=== PATIENT | male | born 1945 | race Caucasian/White ===

== ENCOUNTER 2020-02-23 09:07 | Outpatient (NON) | payer MEDICARE, OTHER, SELFPAY ==
[2020-02-23 21:01] LABS: SARS-CoV-2 RNA PCR Negative
== END 2020-02-23 09:08 ==
LOC: ANHCOVIDDT 09:10
PROVIDERS: PCP Internal Medicine; Visit Provider Internal Medicine
DX: Z20.828 Contact with and (suspected) exposure to other viral communicable diseases (principal); R09.81 Nasal congestion
CPT/HCPCS: 87635; C9803; U0003

== ENCOUNTER 2020-05-31 09:39 | Outpatient (CLI) | payer MEDICARE, OTHER, SELFPAY ==
[2020-05-31 10:45] LABS: Prostate Specific Antigen 6.4 ng/mL (< OR = 4.0)
== END 2020-05-31 09:40 | disposition home or self-care (01) ==
PROVIDERS: PCP Internal Medicine; Visit Provider Urology
DX: R97.20 Elevated prostate specific antigen [PSA] (principal)
CPT/HCPCS: 36415; 84153

== ENCOUNTER 2020-12-05 08:38 | Outpatient (CLI) | payer MEDICARE, OTHER, SELFPAY | END 2020-12-05 08:39 | disposition home or self-care (01) | PROVIDERS: PCP Internal Medicine; Visit Provider Urology | DX: R97.20 Elevated prostate specific antigen [PSA] (principal) | CPT/HCPCS: 36415; 84153 ==

== ENCOUNTER 2021-06-06 09:22 | Outpatient (CLI) | payer MEDICARE, OTHER, SELFPAY ==
[2021-06-06 10:37] LABS: Prostate Specific Antigen 8.6 ng/mL (< OR = 4.0)
== END 2021-06-06 09:23 | disposition home or self-care (01) ==
PROVIDERS: PCP Internal Medicine; Visit Provider Urology
DX: R97.20 Elevated prostate specific antigen [PSA] (principal)
CPT/HCPCS: 36415; 84153

== ENCOUNTER → 2022-09-03 08:27 | Outpatient (CLI) | payer MEDICARE, OTHER, SELFPAY ==
--- NOTE | ~2022-09-03 | XR_ITS ---
EXAMINATION: XR foot LT min 3V DATE: 09/03/2022 08:54 INDICATION: Pain in the left toes. TECHNIQUE: 5 views of left foot were obtained. COMPARISON: None. FINDINGS: Bone alignment is normal. No fracture. There is mild osteoarthritis of first metatarsophala ngeal joint and many of the interphalangeal joints and midfoot joints. There is an enthesophyte at po sterior aspect of calcaneal tuberosity. IMPRESSION: 1. Polyarticular osteoarthritis. Reviewed, dictated and finalized at location A.
== END ==
PROVIDERS: PCP Internal Medicine; Visit Provider Internal Medicine
DX: M19.072 Primary osteoarthritis, left ankle and foot (principal)
CPT/HCPCS: 73630

== ENCOUNTER 2023-09-16 13:27 | Inpatient (IN) | payer MEDICARE, OTHER, SELFPAY ==
[2023-09-16] VITALS (44 sets, daily range): BP systolic 148–213; BP diastolic 46–142; PULSE 33–69; RESP 12–27; TEMP 36.4–36.9; O2SAT 81–100; BMI 31.4; BMI 32.5
--- NOTE | ~2023-09-16 | XR_ITS ---
EXAMINATION: XR chest 2V DATE: 09/19/2023 15:50 INDICATION: Status post pacemaker insertion TECHNIQUE: PA and lateral views of the chest were obtained. COMPARISON: Chest radiograph dated 09/18/2023 FINDINGS: The lungs are clear with no focal airspace opacities, pulmonary edema, pleural effusion or pneumothor ax. The cardiomediastinal silhouette is normal. Dual lead pacemaker seen with leads projecting over t he expected locations of the right atrium and right ventricle. Cholecystectomy clips at the right upp er quadrant. Moderate thoracic spondylosis with chronic mild anterior wedging of a few mid thoracic v ertebral bodies. IMPRESSION: 1. Dual-lead cardiac pacemaker in expected position. No acute cardiopulmonary disease. Reviewed, dictated and finalized at location A. IMPRESSION: 1. Dual-lead cardiac pacemaker in expected position. No acute cardiopulmonary d isease.
--- NOTE | ~2023-09-16 | XR_ITS ---
EXAMINATION: XR chest 1V portable DATE: 09/18/2023 16:16 INDICATION: Pacemaker insertion TECHNIQUE: frontal view of the chest was obtained. COMPARISON: Chest radiograph dated 09/16/2023 FINDINGS: The lungs remain clear with no focal airspace opacities, pulmonary edema, pleural effusion or pneumot horax. The cardiomediastinal silhouette is normal. Dual lead pacemaker seen with leads projecting ove r the expected locations of the right atrium and right ventricle. IMPRESSION: 1. No acute cardiopulmonary disease. Reviewed, dictated and finalized at location A.
--- NOTE | ~2023-09-16 | XR_ITS ---
Portable chest x-ray Comparison: 06/26/2017 Clinical History: Chest pain Findings: Lungs are clear, without focal consolidation or pleural effusion. Cardiomediastinal silho uette is stable. Bones and soft tissues are unremarkable. Impression: Normal chest. Reviewed, dictated and finalized at [facility]. Impression: Normal chest.
--- NOTE | ~2023-09-16 | CT_ITS ---
Non-contrast Head CT History: Headache Technique: Axial non-contrast imaging of the brain was performed. Dose reduction technique was used on this scan by utilizing automated exposure control and iterative reconstruction technique. The dose -length product (DLP) was 425.04 mGy-cm. Findings: There is no evidence of intracranial hemorrhage, mass lesion, or acute infarct. Brain par enchyma appears normal. The ventricles and subarachnoid spaces are normal in size. The calvarium ap pears normal. The visualized paranasal sinuses and mastoid air cells are clear. Impression: No significant abnormality seen. Reviewed, dictated and finalized at location . Impression: No significant abnormality seen.
--- NOTE | 2023-09-16 13:32 | ECG_ITS ---
Test Date: 2023-09-16 16:40:08 Measurements Intervals [place] Rate: 38 P: 0 KS: 0 QRS: -30 QRSD: 111 T: 82 QT: 473 QTc: 378 Interpretive Statements SINUS RHYTHM WITH HIGH GRADE AV BLOCK ANTEROSEPTAL MYOCARDIAL INFARCTION , OF INDETERMINATE AGE [40+ ms Q WAVE IN V1-V4] No previous ECG available for comparison Electronically Signed On 09-17-2023 12:37:50 CDT by Sona Horowitz M.D.
--- NOTE | 2023-09-16 13:44 | ED.ARRPALP ---
HPI - Arrhythmia/Palpitations General Chief Complaint: Arrhythmia/Palpitations Stated Complaint: abnormal VS Time Seen by Provider: 09/16/23 13:35 History of Present Illness HPI narrative: Patient is an 78-year-old male with history of coronary artery disease, diabetes, hypertension, urinary frequency here with high blood pressure and low heart rate. Patient notes that today he began having a headache. He checked his blood pressure at home and it was elevated >200 which prompted him to call EMS. He has a log for blood pressure and heart rates over the last 2 months showing a trend of HR in the low 50s and mid to high 40s. He denies chest pain, lightheadedness, dizziness. He does not believe that he is on any beta-blockers. His only new medication is that he began was then packed yesterday. He denies any nausea, vomiting, diarrhea. When EMS arrived at his house they found his heart rate to be fluctuating between the 20s and 30s. No medications were given EN route. He follows with a records section supervisor out of [facility], Dr. Mo. He had initially requested to be transported to [facility] however due to his low heart rate EMS felt uncomfortable with prolonged transport and brought him to the nearest emergency department which was our emergency department. He notes that he did take ibuprofen for his headache prior to EMS arrival, it had been helping his headache but now the headache has worsened again since he arrived to our emergency department. Related Data Allergies Allergy/AdvReac Type Severity Reaction Status Date / Time niacin Allergy Unknown Unknown Verified 09/16/23 15:48 rosuvastatin Allergy Unknown Unknown Verified 09/16/23 15:48 tolterodine Allergy Unknown Unknown Verified 09/16/23 15:48 Review of Systems Review of Systems: All systems reviewed & are unremarkable except as noted in HPI and below PMFSH Family History Family History (Updated 09/23/18 @ 13:56 by DOCTOR UNKNOWN) Mother Diabetes mellitus Family history of congenital heart disease Father Family history of congenital heart disease Family history of malignant neoplasm Sibling Family history of malignant neoplasm Social History Social History Smoking status: Never smoker Alcohol intake: current Exam Narrative: GENERAL: Well-appearing, well-nourished, and in no acute distress. HEAD: Normocephalic, atraumatic. EYES: PERRLA and EOMI. ENT: Nares clear. Mucous membranes moist. NECK: Supple. CHEST: Clear to auscultation. No respiratory distress. HEART: Bradycardia. Normal peripheral pulses. ABDOMEN: Soft, nontender, nondistended. EXTREMITIES: Normal range of motion. No edema. SKIN: Warm, dry, no rash. NEURO: No focal deficits. Alert and oriented x3. PSYCH: Normal mood and affect. Course Course Emergency Course: Chart review performed. Patient here with HTN, low HR. Triage vitals initially show HTN, normal HR, afebrile. EKG shows HR in the 50s with bigeminy. No prior EKGs in our system. Patient seen evaluated, nontoxic appearing. Blood pressure stable, patient alert, oriented and largely asymptomatic for his low heart rates. On the monitor he appears to be sinus bradycardia and lives in and out of [facility]. Discussed workup with patient. Will avoid any blood pressure lowering medications given his bradycardia. Tylenol ordered for headache. Patient reiterates that he would like to be seen by his records section supervisor, Dr. Mo if possible at [facility]. Will dicusss transfer once we have workup more complete. Lab work and imaging reviewed, CBC unremarkable, electrolytes within normal limits, grossly normal renal function, BNP elevated at 1060, troponin negative. Magnesium is 1.7, will replete this to optimize his magnesium level greater than 2. UA negative for UTI. CT brain negative. Chest x-ray normal. Will re-evaluate patient and discuss possible transfer to [facility] where his records section supervisor is for c
[2023-09-16 14:04] LABS: Basophils Percent Auto 0.5 % (0.2-1.2); Eosinophils Absolute Auto 0.1 K/mm3 (0-0.3); Eosinophils Percent Auto 2.2 % (0-4.4); Hematocrit 35.6 % (42.0-52.0); Hemoglobin 11.4 g/dL (14.0-18.0); Immature Granulocyte Absolute 0.02 K/mm3 (0.00-0.031); Immature Granulocyte Percent A 0.3 % (0-0.5); Lymphocytes Absolute Auto 1.16 K/mm3 (0.9-3.2); Mean Corpuscular Hemoglobin 29.3 pg (26-34); Mean Corpuscular Volume 91.5 fl (80-100); Mean Platelet Volume 9.9 fl (7.4-10.4); Monocytes Absolute Auto 0.5 K/mm3 (0.1-0.6); Monocytes Percent Auto 8.1 % (2.6-8.5); Neutrophils Absolute Auto 4.6 K/mm3 (1.3-6.7); Neutrophils Percent Auto 70.9 % (45.5-73.1); Platelet Count Result 289 k/mm3 (150-375); Red Blood Count 3.89 M/mm3 (4.6-6.20); Red Cell Distribution Width 13.1 % (11.5-14.5); White Blood Count 6.4 K/mm3 (4.5-10.0)
[2023-09-16 14:14] LABS: Appearance Urine Clear (Clear); Bacteria Urine None Seen /hpf; Bilirubin Urine Negative (Negative); Blood Urine Trace (Negative); Color Urine Yellow (Yellow); Glucose Urine UA Negative (Negative); Ketones Urine Negative (Negative); Leukocyte Esterase Ur Negative LEU/UL (Negative); Nitrate Urine Negative (Negative); Non Pathogenic Casts 0-2; Protein Urine 2+ mg/dL (Negative); RBC Urine 0-2 /hpf (0-2); Squamous Epithelial Cell Urine None Seen /hpf (Few); Urobilinogen Urine 0.2 mg/dL (<2.0); WBC Urine 0-5 /hpf (0-3); pH Urine 7.5 (5.0-9.0)
[2023-09-16 14:19] LABS: Alanine Aminotransferase 21 U/L (6-50); Albumin Level 4.4 g/dL (3.5-5.1); Alkaline Phosphatase 83 U/L (38-126); Anion Gap 5 mmol/L (4-12); Aspartate Amino Transferase 35 U/L (17-59); Bilirubin,Total 1.1 mg/dL (0.2-1.3); Blood Urea Nitrogen 16 mg/dL (9-20); Calcium 9.6 mg/dL (8.4-10.2); Carbon Dioxide 31 mmol/L (22-30); Chloride 105 mmol/L (98-107); Estimated CRCL calculation 54 ml/min; Estimated Glomerular Filt Rate > 60; Glucose 102 mg/dL (65-110); Lipase 61 U/L (23-300); Magnesium 1.7 mg/dL (1.6-2.3); Potassium 3.9 mmol/L (3.4-5.0); Sodium 141 mmol/L (137-145)
[2023-09-16] MEDS: ACETAMINOPHEN 500 MG TABLET 1000 MG PO (14:21)
[2023-09-16 14:23] LABS: Partial Thromboplastin Time 27.6 Seconds (22.3-36.8); Prothrombin Time 13.4 Seconds (11.1-14.7)
[2023-09-16 14:30] LABS: NT Pro B Type Natriuretic Pept 1060 pg/mL (19.9-100); Troponin I 0.017 ng/mL (0.000-0.034)
[2023-09-16 14:31] LABS: Add Urine Microscopic? YES; Specific Grav Ur 1.004 (1.001-1.035)
[2023-09-16] MEDS: MAGNESIUM SULF 2 GM/WATER 50ML 2 GM/50 ML BAG IVPB (15:58)
[2023-09-16] MEDS: amLODIPine BESYLATE 5 MG TABLET 10 MG PO (15:59)
[2023-09-16] MEDS: ONDANSETRON INJ 4 MG/2 ML VIAL IV PUSH ×2 (17:12→19:16)
[2023-09-16] MEDS: MORPHINE SULFATE (*CRX) 4 MG/ML INJ IV PUSH ×2 (17:12→19:21)
[2023-09-16] MEDS: hydrALAZINE HCL 20 MG/ML VIAL 10 MG IV PUSH (17:19)
[2023-09-16 17:25] LABS: Troponin I 0.128 ng/mL (0.000-0.034)
[2023-09-16] MEDS: ENOXAPARIN 100 MG/ML SYRINGE SUB-Q (18:01)
--- NOTE | 2023-09-16 19:13 | ECG_ITS ---
Test Date: 2023-09-16 19:20:43 Measurements Intervals [place] Rate: 68 P: 0 VA: 0 QRS: -27 QRSD: 94 T: 79 QT: 395 QTc: 423 Interpretive Statements SINUS RHYTHM WITH HIGH GRADE AV BLOCK PVCS ANTEROSEPTAL MYOCARDIAL INFARCTION , PROBABLY OLD [40+ ms Q WAVE IN V1-V4] Compared to ECG 09/16/2023 16:40:08 No significant changes Electronically Signed On 09-17-2023 12:40:16 CDT by Sona Horowitz M.D.
[2023-09-16] MEDS: ASPIRIN 81 MG CHEWABLE TABLET 324 MG PO (19:20)
--- NOTE | 2023-09-16 19:21 | PC.NURSE ---
ON 09/15/2020 AT 1910 I ANSWERED THIS PT'S 'S (WHO WAS UP AT THE NURSES STATION) REQUEST TO COME GIVE PT A NEW EMESIS BAG. I WENT STRAIGHT IN TO ROOM 9 AT HER REQUEST, INTRODUCED MYSELF, THE [employer] CHARGE NURSE AND OFFERED TO THEM IF THERE WAS ANYTHING I COULD DO FOR THEM TO JUST LET ME KNOW. I TOOK HIS USED EMESIS BAG AND GAVE HIM A NEW ONE. I ALSO GAVE HIM A WET WASHCLOTH FOR COMFORT. I ASKED IF HE WAS IN NEED OF NAUSEA MEDICATION, HE ANSWERED I DON'T KNOW . I ASSURED HIM I WOULD CHECK ON NAUSEA MEDICATION AND ALSO CHECK ON HIS POTENTIAL BED STATUS AT [facility]. HIS IS AT BEDSIDE, AND IS VERBALLY EXPRESSING HER DISCONTENT WITH THIS HOSPITAL AND EVERYONE HERE.
--- NOTE | 2023-09-16 19:41 | PM.IMHP ---
H&P: HPI History of Present Illness Date/Time: 09/16/23 19:41 Chief Complaint: shortness of breath Narrative: this is an 78-year-old male with past medical history significant for coronary artery disease, status post PTCA, type 2 diabetes mellitus, hypertension, benign prostatic hyperplasia. patient presents to the emergency room due to uncontrolled hypertension with systolic blood pressure in the 200s he was brought by EMS initially on route to [place] were patient usually gets his care but with significant bradycardia on route decision was made to bring him to our emergency room. here patient was found to have systolic blood pressure in the 200s as well and to be bradycardic. Patient has been feeling well he went to the in the morning and he has had an overall good week denies any shortness of breath cough sputum production, fevers, rigors, chills, leg swelling, lightheadedness however upon episode of of hypertension he had episodes of brief chest pain with lightheadedness and shortness of breath. Patient has been placed in observation his currently awaiting a bed at [place] Non-contrast Head CT History: Headache Technique: Axial non-contrast imaging of the brain was performed. Dose reduction technique was used on this scan by utilizing automated exposure control and iterative reconstruction technique. The dose-length product (DLP) was 425.04 mGy-cm. Findings: There is no evidence of intracranial hemorrhage, mass lesion, or acute infarct. Brain parenchyma appears normal. The ventricles and subarachnoid spaces are normal in size. The calvarium appears normal. The visualized paranasal sinuses and mastoid air cells are clear. Impression: No significant abnormality seen. Portable chest x-ray Comparison: 06/26/2017 Clinical History: Chest pain Findings: Lungs are clear, without focal consolidation or pleural effusion. Cardiomediastinal silhouette is stable. Bones and soft tissues are unremarkable. Impression: Normal chest. Review of Systems Review of Systems: uncontrolled hypertension Constitutional: Constitutional: Denies chills, Denies fatigue, Denies fever(s), Denies malaise, Denies night sweats, Denies poor appetite, Denies weakness and Reports weight loss ( on Ozempic) Eyes: Eyes: Denies change in vision ENT: Denies dysphagia, Denies vertigo, Denies dizziness and Denies odynophagia Cardiovascular: Cardiovascular: Reports chest pain, Denies leg edema, Reports lightheadedness, Denies radiating jaw, neck or arm pain, Denies palpitations, Reports dyspnea and Reports other ( uncontrolled hypertension) Respiratory: Respiratory: Denies chest congestion, Denies cough and Denies wheezing Gastrointestinal: Gastrointestinal: Denies abdominal pain, Denies nausea and Denies vomiting Genitourinary: Genitourinary: Denies dysuria Musculoskeletal: Musculoskeletal: Denies myalgias Integumentary/Breasts: Skin/Breast: Denies rash Neurologic: Denies focal weakness and Denies Sensory deficit (Neuro) Psychiatric: Psychiatric: Reports no additional psychiatric complaints and Reports as per HPI Endocrine: Endocrine: Denies cold intolerance, Denies heat intolerance, Denies polyphagia, Denies polydipsia, Denies polyuria and Denies palpitations Hematologic/Lymphatic: Hematologic/Lymphatic: Reports no additional hematologic/lymphatic complaints and Reports as per HPI Allergic/Immunologic: Allergic/Immunologic: Reports no additional allergic/immunologic complaints and Reports as per HPI [facility] Family History Family History Mother Diabetes mellitus Family history of congenital heart disease Father Family history of congenital heart disease Family history of malignant neoplasm Sibling Family history of malignant neoplasm Social History Social History Smoking status: Never smoker Alcohol intake: current Drinks per we
--- NOTE | 2023-09-16 20:02 | PC.NURSE ---
upon shift change, visitor of patient came to the nurses station shouting pt was vomitting. per edp dr. nickerson pt to receive 4mg of zofran iv push. this rn went into patient room. pt visitor started stating, no one has given him any medications for his leg cramping, the call light is on the ground, the nurse before said she was checking on things, has not been back . this rn explained I had zofran for patient for nausea. pt verbalized understanding and had no further questions at this time. pt visitor stated his leg cramping was a 9/10 and getting worse . edp dr. nickerson ordered morphine for patient. this rn asked patient his pain level. pt stated his bilateral leg cramping was a 7/10. this rn administered morphine to patient. pt verbalized understanding. this rn reorientated patient to the call light and explained how to use call light. pt verbalized understanding. ed charge lpn gave pt visitor patient coordination card. pt visitor shouted, no that is not enough . meteorologist in charge explained the benefits of voicing concerns. pt visitor then stated, I don't need to talk to patient advocate, I need a court attendant .
[2023-09-16 20:11] LABS: Troponin I 0.221 ng/mL (0.000-0.034)
--- NOTE | 2023-09-16 20:30 | ECG_ITS ---
Test Date: 2023-09-16 20:33:56 Measurements Intervals [place] Rate: 57 P: 162 ID: [id number] QRS: -25 QRSD: 91 T: 115 QT: 395 QTc: 386 Interpretive Statements SINUS BRADYCARDIA WITH HIGH GRADE AV BLOCK WITH FREQUENT VENTRICULAR PREMATURE COMPLEXES IN A BIGEMINAL PATTERN ANTEROSEPTAL MYOCARDIAL INFARCTION , OF INDETERMINATE AGE [40+ ms Q WAVE IN V1-V4] Compared to ECG 09/16/2023 19:20:43 NO SIGNIFICANT CHANGES Electronically Signed On 09-17-2023 12:41:26 CDT by oSna Horowitz M.D.
[2023-09-16] MEDS: LORazepam INJ (*CRX) 2 MG/ML VIAL 1 MG IV PUSH (20:36)
[2023-09-16 21:43] LABS: Glucose Point of Care 180 mg/dl (65-105)
--- NOTE | 2023-09-16 22:14 | ADMGEN ---
This patient, Adán Anderson, was admitted to IMU Room 204-01 at 2105. Patient/family oriented to hospital policies and general routines including ID bracelet, bed and alarms, visiting hours, pain management, procedures, bathroom and other care routines, personal items, smoking policy, room service/diet, and visiting hours. Information on how to activate the Rapid Response Team has been discussed. Patient/Family are encouraged to report perceived risks to care and to ask questions if they do not understand what they are told or what they should do.
[2023-09-17] VITALS (15 sets, daily range): BP systolic 150–176; BP diastolic 48–57; PULSE 31–58; RESP 16–20; TEMP 35.9–36.8; O2SAT 91–98
--- NOTE | 2023-09-17 | ECHO_ITS ---
Patient Info Name: Adán Anderson Age: 78 years : 1945 Gender: Male Ht: 68 in Wt: 208 lbs BSA: 2.16 m2 HR: 53 bpm BP: 167 / 52 mmHg Heart Rhythm: Sinus Rhythm Technical Quality: Fair Exam Date: 09/17/2023 3:13 PM Exam Location: Echo Lab Patient Status: Inpatient Admit Date: 09/16/2023 Staff Ordering Physician: Mitra Navarro Facility Sales And Admin: Sheri Leyva RDCS Attending Provider: Easton Lucas MD Referring Physician: Melanie PHILLIP; Exam Type: CA echo dop color flow w con Study Info Indications - complete heart block Complete two-dimensional, color flow and Doppler transthoracic echocardiogram is performed with contrast to opacify the left ventricle and to improve the deliniation of the left ventricle endocardial borders. Contrast/Agitated Saline Contrast/Ag. Saline: Definity Amount: 3.00 ml Administered By: Sheri Leyva RDCS Existing IV Access: Yes IV Access Condition: patent with no signs of infiltration Summary 1. Normal left ventricular size with normal systolic function and grade 1 diastolic noncompliance. 2. Mild aortic valve stenosis valve area 1.5 cm2. 3. Left atrial enlarged. 4. Second-degree AV block noted during the echocardiogram. Left Ventricle Left ventricular chamber dimension is normal. Left ventricular systolic function is normal, estimated at 55-60%. The left ventricular diastolic function is grade I diastolic dysfunction. Right Ventricle Right ventricular chamber dimension is normal. Left Atria Left atrial chamber dimension is moderately enlarged. Right Atria Right atrial chamber dimension is normal. Aortic Valve The aortic valve is trileaflet. There is moderate aortic valve sclerosis. There is mild aortic valve stenosis with a peak velocity of 254.98 cm/s, mean gradient of 11 mmHg, and aortic valve area of 1.83 cm2. Pulmonic Valve The pulmonic valve is normal. Mitral Valve The mitral valve has normal leaflets. The mitral valve annulus is mildly calcified. Tricuspid Valve The tricuspid valve leaflets are normal. Pericardium/Pleural The pericardium appears normal. Aorta The aortic root size at the sinus of Valsalva is normal. Left Ventricular Outflow Tract Name Value Normal LVOT 2D LVOT Diameter 2.01 cm LVOT Doppler LVOT Peak Gradient 6 mmHg LVOT Mean Gradient 3 mmHg LVOT VTI 28.40 cm LVOT VTI/AV VTI Ratio 0.58 LVOT Stroke Volume 90.13 ml LVOT CO 2.91 l/min LVOT CI 1.35 L/min/m2 Pulmonic Valve Name Value Normal RVOT Doppler RVOT Peak Gradient 4 mmHg PV Doppler PV Peak Gradient 6 mmHg Mitral Valve
[2023-09-17] MEDS: MONTELUKAST SODIUM 10 MG TABLET PO (08:38)
[2023-09-17] MEDS: amLODIPine BESYLATE 2.5 MG TABLET PO (08:38)
[2023-09-17] MEDS: PANTOPRAZOLE 40 MG TABLET PO (08:38)
[2023-09-17] MEDS: hydrALAZINE HCL 25 MG TABLET PO ×2 (08:38→16:47)
[2023-09-17] MEDS: lisinopriL 20 MG TABLET PO (08:38)
[2023-09-17] MEDS: FINASTERIDE 5 MG TABLET PO (08:39)
[2023-09-17] MEDS: ASPIRIN 81 MG ENTERIC TABLET PO (08:39)
[2023-09-17] MEDS: LORATADINE 10 MG TABLET PO (08:39)
[2023-09-17] MEDS: ATORVASTATIN 40 MG TABLET PO (08:40)
--- NOTE | 2023-09-17 08:46 | ECG_ITS ---
Test Date: 2023-09-17 09:50:29 Measurements Intervals [place] Rate: 41 P: 0 [place]: 0 QRS: -33 QRSD: 121 T: 69 QT: 442 QTc: 368 Interpretive Statements SINUS BRADYCARDIA WITH HIGH GRADE AV BLOCK MARKED LEFT AXIS DEVIATION [QRS AXIS < -30] ANTEROSEPTAL MYOCARDIAL INFARCTION [40+ ms Q WAVE IN V1-V4], PROBABLY OLD Compared to ECG 09/16/2023 20:33:56 NO SIGNIFICANT CHANGES Electronically Signed On 09-17-2023 12:47:03 CDT by Sona Horowitz M.D.
--- NOTE | 2023-09-17 11:09 | PM.CNCAR ---
Assessment and Plan Assessment and plan (1) CAD (coronary artery disease): Code(s): I25.10 - Atherosclerotic heart disease of three affiliated coronary artery without angina pectoris Status: Acute Assessment and Plan: History of CAD with 2 stents. This is stable, not reporting any anginal symptoms. Continue ASA, statin. (2) Bradycardia: Code(s): R00.1 - Bradycardia, unspecified Status: Acute Assessment and Plan: He has high grade AV block with heart rates frequently in the 30's. Despite this, his blood pressure is stable and he is asymptomatic. He does not have any obvious correctable cause for this bradyarrhythmia. Therefore, discussed the recommendation for permanent pacemaker implantation for his third degree heart block. He is agreeable to this and would like to remain at [facility] for this procedure rather than transferring to [facility] as originally planned. Plan for pacemaker placement tomorrow with Dr. Pidera. Since he is stable he does not require temporary pacing or support with dopamine at this point. Continue to monitor on telemetry. (3) Hypertension: Qualifiers: Hypertension type: unspecified Qualified Code(s): I10 - Essential (primary) hypertension Code(s): I10 - Essential (primary) hypertension Status: Acute History of Present Illness History of Present Illness Consult date/time: 09/17/23 11:09 Requesting physician: Ellie Gutierrez MD Consult reason: hypertension and Other (bradycardia) Reason For Visit: Bradycardia, Hypertension Narrative: Adán Anderson is an 78 year old male with coronary artery disease and hypertension. He reports an AR in 1994 which was trated medically and he subsequently had two stents placed a number of years ago following an abnormal nuclear stress test. Generally from a cardiac standpoint he has been doing very well. He follows with Dr. Mo and reports that he had a follow up visit in August where no changes were made. He was brought to the hospital because he was hypertensive at home yesterday and his was concerned. Upon initial assessment he was found to be bradycardic and ECG revealed high grade AV block. He denies having a history of any arrhythmias and denies any symptoms of syncope, pre-syncope, shortness of breath, chest pain. He has no complaints at the time of my evaluation and is resting comfortably in bed with multiple family members at the bedside. Review of Systems Constitutional: Constitutional: Denies chills, Denies fever(s), Denies headache(s) and Denies malaise Eyes: Eyes: Denies change in vision ENT: Reports Normal hearing present, Denies dizziness, Denies headache(s) and Denies hearing loss Cardiovascular: Cardiovascular: Denies chest pain, Denies chest pain at rest, Denies chest pain with activity, Denies syncope, Denies leg edema, Denies palpitations, Denies dyspnea and Denies dyspnea on exertion Respiratory: Respiratory: Denies cough, Denies dyspnea, Denies dyspnea on exertion and Denies wheezing Gastrointestinal: Gastrointestinal: Denies abdominal pain, Denies constipation and Denies diarrhea Genitourinary: Genitourinary: Denies hematuria and Denies dysuria Musculoskeletal: Musculoskeletal: Denies myalgias, Denies arthralgias and Denies muscle cramps Integumentary/Breasts: Skin/Breast: Denies wounds Neurologic: Reports Normal hearing present, Denies confusion, Denies dizziness, Denies syncope and Denies headache(s) Psychiatric: Psychiatric: Denies anxiety, Denies confusion and Denies depression Endocrine: Endocrine: Denies cold intolerance, Denies flushing, Denies heat intolerance and Denies palpitations Hematologic/Lymphatic: Hematologic/Lymphatic: Denies easy bleeding and Denies easy bruising Allergic/Immunologic: Allergic/Immunologic: Denies wheezing PMFSH Family History Family History Mother Diabetes mellitus
--- NOTE | 2023-09-17 14:22 | PM.IMPN ---
Progress Note: A&P Assessment and Plan (1) Hypertension: Qualifiers: Hypertension type: unspecified Qualified Code(s): I10 - Essential (primary) hypertension Code(s): I10 - Essential (primary) hypertension Status: Acute Assessment and Plan: restart home meds cautious normalization of blood pressure (2) Bradycardia: Code(s): R00.1 - Bradycardia, unspecified Status: Acute Assessment and Plan: pacer pads on (3) CAD (coronary artery disease): Code(s): I25.10 - Atherosclerotic heart disease of [place] coronary artery without angina pectoris Status: Acute Assessment and Plan: continue to monitor (4) T2DM (type 2 diabetes mellitus): Code(s): E11.9 - Type 2 diabetes mellitus without complications Status: Acute Assessment and Plan: Holding Ezetimibe Holding Ozempic Plan Patient is an 78-year-old male with history of coronary artery disease, diabetes, hypertension, urinary frequency here with high blood pressure and low heart rate. Patient notes that today he began having a headache. He checked his blood pressure at home and it was elevated >200 which prompted him to call EMS. He has a log for blood pressure and heart rates over the last 2 months showing a trend of HR in the low 50s and mid to high 40s. He denies chest pain, lightheadedness, dizziness. He does not believe that he is on any beta-blockers. His only new medication is that he began was then packed yesterday. He denies any nausea, vomiting, diarrhea. When EMS arrived at his house they found his heart rate to be fluctuating between the 20s and 30s. No medications were given EN route. He follows with a application architect out of [facility], Dr. Mo. He had initially requested to be transported to [facility] however due to his low heart rate EMS felt uncomfortable with prolonged transport and brought him to the nearest emergency department which was our emergency department. He notes that he did take ibuprofen for his headache prior to EMS arrival, it had been helping his headache but now the headache has worsened again since he arrived to our emergency department. Lab work and imaging reviewed, CBC unremarkable, electrolytes within normal limits, grossly normal renal function, BNP elevated at 1060, troponin negative. Magnesium is 1.7, will replete this to optimize his magnesium level greater than 2. UA negative for UTI. CT brain negative. Chest x-ray normal. Patient was discussed with primary application architect at [facility] and accepted for transfer. Currently on wait list. Cardiology has been consulted here for sinus bradycardia and high-grade block. Hemodynamically stable. Elevated troponin as well. Therapeutic Lovenox Given. Will continue with the prophylactic dose Subjective Date/time seen: 09/17/23 14:22 Interval history: Telemetry reviewed. No new complaints. No chest pain or shortness of breath. No lightheadedness or dizziness. Review of Systems Review of Systems: All systems reviewed & are unremarkable except as noted in HPI and below Exam Narrative: GENERAL: Well-appearing, well-nourished, and in no acute distress. HEAD: Normocephalic, atraumatic. EYES: PERRLA and EOMI. ENT: Nares clear. Mucous membranes moist. NECK: Supple. CHEST: Clear to auscultation. No respiratory distress. HEART: Bradycardia. Normal peripheral pulses. ABDOMEN: Soft, nontender, nondistended. EXTREMITIES: Normal range of motion. No edema. SKIN: Warm, dry, no rash. NEURO: No focal deficits. Alert and oriented x3. PSYCH: Normal mood and affect. Objective Data Vital Signs Vital Signs: Vital Signs - 24 hr 09/16/23 14:23 09/16/23 14:23 09/16/23 14:35 Temperature Pulse Rate 53 L 56 L 62 Respiratory Rate 14 13 14 Blood Pressure 169/68 H 169/68 H 180/53 H Pulse Oximetry 97 99 97 Oxygen Delivery 09/16/23 14:45 09/16/23 14:50 09/16/23 15:15
[2023-09-17] MEDS: PERFLUTREN LIPID MICROSPHERES 1.5 ML VIAL DILUTED TO 10 ML TOTAL VOLUME IV PUSH (15:30)
--- NOTE | 2023-09-17 17:20 | IVDEFINITY ---
Prior to administration of IV Definity the patient was educated on the risks and benefits of the imaging enhancing agent including potential adverse side effects. The patient verbalized understanding. Allergies were verified. No exclusion criteria were identified and at least one of the following inclusion criteria were met: 1) physician request, 2) patient technically difficult to image (per the [place] [employer] guidelines of two or more segments not discernable within the apical view), or 3) questionable left ventricular function. ?
[2023-09-18] VITALS (19 sets, daily range): BP systolic 154–186; BP diastolic 55–73; PULSE 32–73; RESP 14–20; TEMP 36.5–36.8; O2SAT 94–98
[2023-09-18 05:48] LABS: Glucose Point of Care 148 mg/dl (65-105)
[2023-09-18 08:16] LABS: Glucose Point of Care 107 mg/dl (65-105)
[2023-09-18] MEDS: amLODIPine BESYLATE 5 MG TABLET 10 MG PO (08:42)
[2023-09-18] MEDS: lisinopriL 20 MG TABLET PO (08:43)
[2023-09-18] MEDS: LORATADINE 10 MG TABLET PO (08:43)
[2023-09-18] MEDS: ATORVASTATIN 40 MG TABLET PO (08:43)
[2023-09-18] MEDS: hydrALAZINE HCL 25 MG TABLET PO ×3 (08:43→20:04)
[2023-09-18] MEDS: FINASTERIDE 5 MG TABLET PO (08:43)
[2023-09-18] MEDS: MONTELUKAST SODIUM 10 MG TABLET PO (08:43)
[2023-09-18] MEDS: PANTOPRAZOLE 40 MG TABLET PO (08:44)
[2023-09-18] MEDS: ASPIRIN 81 MG ENTERIC TABLET PO (08:44)
--- NOTE | 2023-09-18 08:53 | WPDMODSED ---
Moderate Sedation Note-Pt Data Patient Data Diagnosis: High-grade AV block coronary disease with previous PCI Present Complaint: bradycardia Procedure to be performed/Plan: pacemaker implantation Allergies Allergy/AdvReac Type Severity Reaction Status Date / Time niacin Allergy Unknown Unknown Verified 09/16/23 15:48 rosuvastatin Allergy Unknown Unknown Verified 09/16/23 15:48 tolterodine Allergy Unknown Unknown Verified 09/16/23 15:48 Home Medications Medication Instructions Recorded Confirmed Type amlodipine 2.5 mg tablet 2.5 mg PO DAILY 09/16/23 09/16/23 History aspirin 81 mg tablet,delayed 81 mg PO DAILY 09/16/23 09/16/23 History release atorvastatin 40 mg tablet 40 mg PO DAILY 09/16/23 09/16/23 History cetirizine 10 mg tablet (Zyrtec) 10 mg PO DAILY 09/16/23 09/16/23 History cholecalciferol (vitamin D3) 125 125 mcg PO DAILY 09/16/23 09/16/23 History mcg (5,000 unit) capsule coenzyme Q10 100 mg capsule 200 mg PO DAILY 09/16/23 09/16/23 History (CoQ-10) ezetimibe 10 mg tablet 10 mg PO DAILY 09/16/23 09/16/23 History finasteride 5 mg tablet 5 mg PO DAILY 09/16/23 09/16/23 History hydralazine 25 mg tablet 25 mg PO BID 09/16/23 09/16/23 History lisinopril 20 mg tablet 20 mg PO DAILY 09/16/23 09/16/23 History montelukast 10 mg tablet 10 mg PO DAILY 09/16/23 09/16/23 History omeprazole 20 mg capsule,delayed 20 mg PO DAILY 09/16/23 09/16/23 History release semaglutide 1 mg/dose (4 mg/3 mL) 1 mg subcut WEEKLY 09/16/23 09/16/23 History subcutaneous pen injector (Ozempic) Current Medications: Active Medications Amlodipine Besylate (Amlodipine Besylate 5 Mg Tablet) 10 mg PO DAILY [facility] Last Admin: 09/18/23 08:42 Dose: 10 mg Aspirin (Aspirin 81 Mg Enteric Tablet) 81 mg PO DAILY [facility] Last Admin: 09/18/23 08:44 Dose: 81 mg Atorvastatin Calcium (Atorvastatin 40 Mg Tablet) 40 mg PO DAILY [facility] Last Admin: 09/18/23 08:43 Dose: 40 mg Finasteride (Finasteride 5 Mg Tablet) 5 mg PO DAILY [facility] Last Admin: 09/18/23 08:43 Dose: 5 mg Hydralazine HCl (Hydralazine Hcl 25 Mg Tablet) 25 mg PO BID [facility] Last Admin: 09/18/23 08:43 Dose: 25 mg Lisinopril (Lisinopril 20 Mg Tablet) 20 mg PO DAILY [facility] Last Admin: 09/18/23 08:43 Dose: 20 mg Loratadine (Loratadine 10 Mg Tablet) 10 mg PO QAM [facility] Last Admin: 09/18/23 08:43 Dose: 10 mg Montelukast Sodium (Montelukast Sodium 10 Mg Tablet) 10 mg PO DAILY [facility] Last Admin: 09/18/23 08:43 Dose: 10 mg Pantoprazole Sodium (Pantoprazole 40 Mg Tablet) 40 mg PO QAM [facility] Last Admin: 09/18/23 08:44 Dose: 40 mg Trimethobenzamide HCl (Trimethobenzamide Hcl 200 Mg/2 Ml Vial) 200 mg IM Q6H PRN PRN Reason: Nausea And Vomiting Sedation/Anesthesia: No previous sedation/anesthesia problems (including family history). [facility] Family History Family History Mother Diabetes mellitus Family history of congenital heart disease Father Family history of congenital heart disease Family history of malignant neoplasm Sibling Family history of malignant neoplasm Social History Social History Smoking status: Never smoker Alcohol intake: current Drinks per week: 1 Substance use: never Do You Feel Safe in your Home?: Yes Lack of Transportation: No Lack of Food: Never True Current Housing: I Have Housing Concerned About Future Housing: No Difficulty Paying Gas/Electric Bills: No Difficulty Paying for Meds: No Currently Unemployed: No Education: Master's Degree or Higher Difficulty w/ Childcare or Family Care: No Spiritual care concerns: Yes Mod Sed Physical Exam Physical Exam Pre Procedural Exam: Normal: Appearance, Neck, Throat, Airway, Lungs, Heart Size, Neuro Exam and Extremities and Variation: Heart Rate ( bradycardic, second-degree AV block) and Heart Rhythm Hours since solid foods: 12 Hours since liquid int
[2023-09-18] MEDS: TRIMETHOBENZAMIDE HCL 200 MG/2 ML VIAL IM (09:02)
--- NOTE | 2023-09-18 10:07 | PM.IMPN ---
Progress Note: A&P Assessment and Plan (1) Hypertension: Qualifiers: Hypertension type: unspecified Qualified Code(s): I10 - Essential (primary) hypertension Code(s): I10 - Essential (primary) hypertension Status: Acute (2) Bradycardia: Code(s): R00.1 - Bradycardia, unspecified Status: Acute (3) CAD (coronary artery disease): Code(s): I25.10 - Atherosclerotic heart disease of [place] coronary artery without angina pectoris Status: Acute (4) T2DM (type 2 diabetes mellitus): Code(s): E11.9 - Type 2 diabetes mellitus without complications Status: Acute Plan Patient is an 78-year-old male with history of coronary artery disease, diabetes, hypertension, urinary frequency here with high blood pressure and low heart rate. Patient notes that today he began having a headache. He checked his blood pressure at home and it was elevated >200 which prompted him to call EMS. He has a log for blood pressure and heart rates over the last 2 months showing a trend of HR in the low 50s and mid to high 40s. He denies chest pain, lightheadedness, dizziness. He does not believe that he is on any beta-blockers. His only new medication is that he began was then packed yesterday. He denies any nausea, vomiting, diarrhea. When EMS arrived at his house they found his heart rate to be fluctuating between the 20s and 30s. No medications were given EN route. He follows with a archival records clerk out of [facility], Dr. Mo. He had initially requested to be transported to [facility] however due to his low heart rate EMS felt uncomfortable with prolonged transport and brought him to the nearest emergency department which was our emergency department. He notes that he did take ibuprofen for his headache prior to EMS arrival, it had been helping his headache but now the headache has worsened again since he arrived to our emergency department. Lab work and imaging reviewed, CBC unremarkable, electrolytes within normal limits, grossly normal renal function, BNP elevated at 1060, troponin negative. Magnesium is 1.7, will replete this to optimize his magnesium level greater than 2. UA negative for UTI. CT brain negative. Chest x-ray normal. Patient was discussed with primary archival records clerk at [facility] and accepted for transfer. Currently on wait list. Cardiology has been consulted here for sinus bradycardia and high-grade block. Hemodynamically stable. Elevated troponin as well. Therapeutic Lovenox Given. Echo with normal EF Planned for pacemaker implantation by Cardiology today Subjective Date/time seen: 09/18/23 10:07 Interval history: Has some discomfort in his lower abdomen, wants to have a bowel movement. Some headache. No lightheadedness or dizziness. Telemetry reviewed. Going for pacemaker implantation today. Review of Systems Review of Systems: All systems reviewed & are unremarkable except as noted in HPI and below Exam Narrative: GENERAL: Well-appearing, well-nourished, and in no acute distress. HEAD: Normocephalic, atraumatic. EYES: PERRLA and EOMI. ENT: Nares clear. Mucous membranes moist. NECK: Supple. CHEST: Clear to auscultation. No respiratory distress. HEART: Bradycardia. Normal peripheral pulses. ABDOMEN: Soft, nontender, nondistended. EXTREMITIES: Normal range of motion. No edema. SKIN: Warm, dry, no rash. NEURO: No focal deficits. Alert and oriented x3. PSYCH: Normal mood and affect. Objective Data Vital Signs Vital Signs: Vital Signs - 24 hr 09/17/23 12:00 09/17/23 12:00 09/17/23 12:00 Temperature 97.4 F L Pulse Rate 40 L 40 L Respiratory Rate 18 Blood Pressure 176/51 H Pulse Oximetry 98 Oxygen Delivery Room Air 09/17/23 14:00 09/17/23 16:00 09/17/23 16:00 Temperature 98 F Pulse Rate 54 L 48 L Respiratory Rate 16 Blood Pressure 160/57 H Pulse Oximetry 91 Oxygen Delivery Room Air 09/17/23 16:
[2023-09-18 11:55] LABS: Glucose Point of Care 111 mg/dl (65-105)
[2023-09-18 12:10] LABS: Hemoglobin A1C 5.6 % (<5.7)
--- NOTE | 2023-09-18 15:14 | ECG_ITS ---
Test Date: 2023-09-16 13:32:34 Measurements Intervals [place] Rate: 55 P: 219 ID: 100 QRS: -27 QRSD: 86 T: 83 QT: 419 QTc: 403 Interpretive Statements SINUS BRADYCARDIA WITH SHORT ID INTERVAL WITH FREQUENT VENTRICULAR PREMATURE COMPLEXES IN A BIGEMINAL PATTERN ANTEROSEPTAL MYOCARDIAL INFARCTION , PROBABLY OLD [40+ ms Q WAVE IN V1-V4] No previous ECG available for comparison Electronically Signed On 09-19-2023 15:40:32 CDT by Jose Raul Jacobsen M.D.
--- NOTE | 2023-09-18 15:45 | ECG_ITS ---
Test Date: 2023-09-18 16:02:14 Measurements Intervals [place] Rate: 77 P: -12 MO: 178 QRS: -68 QRSD: 185 T: 84 QT: 492 QTc: 558 Interpretive Statements ELECTRONIC VENTRICULAR PACEMAKER ABNORMAL RHYTHM ECG Compared to ECG 09/17/2023 09:50:29 Sinus bradycardia no longer present Left-axis deviation no longer present Electronically Signed On 09-19-2023 15:53:46 CDT by Jose Raul Jacobsen M.D.
--- NOTE | 2023-09-18 15:47 | WPDCARDPROC ---
Cardiac Cath Procedure Note Date of procedure:: 09/18/23 Performing physician:: Al Piedra MD Indication:: symptomatic bradycardia with second-degree AV block Brief clinical history:: this is an 78-year-old man with a history of coronary disease and previous percutaneous revascularization. He enter this hospital with symptomatic bradycardia was found to have high-grade AV block for which pacemaker implantation has been recommended. His established manager desktop is not available at this hospital. echocardiogram this morning demonstrates well-preserved right and left ventricular systolic function. Procedure Procedure performed:: implantation of permanent Biotronik dual-chamber pacemaker Sedation/Medication given:: fentanyl 50 mg Versed 2 mg case start time 2:46 p.m. case end time 3:42 p.m. sedation provided by Porsha Miner RN, trained observer Access site:: left subclavian vein Estimated blood loss:: minimal Procedure note:: patient was brought to the cardiac catheterization lab in the postabsorptive state where the left anterior chest wall was cleansed and draped in the normal sterile fashion. Anesthesia was provided with 1% lidocaine infiltrated locally below the clavicle. About 1 in below the clavicle an incision was then made for the midclavicular line to the deltopectoral groove. Sharp and blunt dissection was used to separate the subcutaneous tissue to the level of the prepectoral fascia. Electrocautery was used to provide cutaneous hemostasis. Following this blunt dissection was used to create a pacemaker pocket along the fascial plane inferior to the incision. This was then packed with antibiotic soaked 4 x 4. Following this attention was turned to venous access. Using 2 6 [place] safe sheath kits the left subclavian vein was punctured and both guidewires were advanced into the venous circulation under fluoroscopic visualization to the level of the right atrium. Following this the pacemaker leads described below were advanced into the venous circulation to the level right atrium and the sheaths were peeled away. Attention was then turned to the ventricular lead. I withdrew the stylet informed a J-tip stylet using 3 cc syringe and then to use this to direct the lead through the RV out to the PA position. I had to map several spots in the right atrium to get good pacing and sensing performance ultimately a very good location was identified at the right ventricular apex. after the fixation screw was deployed the analyzer demonstrated excellent pacing and sensing performance. Following this attention was turned to the atrial lead. The straight stylet was removed and a preformed atrial J stylet was placed this was used to position the lead the lead tip in the right atrial appendage. The fixation screw was deployed upon withdrawal of the stylet the lead tip was fixed into the appendage. The analyzer was then used to check this lead and good pacing and sensing performance was also demonstrated. On both leads is a 10 volt stimulation failed to show any evidence of extracardiac stimulation. The leads were then secured to the base of the pocket using the suture sleeves and 2-0 silk ties. The retained sponge was removed from pocket which was then irrigated with antibiotic infused saline. Following this the pacemaker generator was connected to the using the torque wrench the entire assembly was placed into the newly created pocket which was then closed in layers. 3-0 Vicryl was used in and out interrupted fashion the subcutaneous tissue and 4-0 Vicryl in a running subcuticular fashion for the skin. The wound was dressed with an Aquacel dressing the left arm was placed in an immobilizer. Postop antibiotics chest x-ray and analgesics were ordered. Procedure was well tolerated and uncomplicated. Findings:: The patient received a Biotronik dual-chamber pacemaker model Amvia Edge [id number]. serial number 1
[2023-09-18] MEDS: ACETAMINOPHEN 325 MG TABLET 650 MG PO ×2 (17:22→22:53)
[2023-09-18 17:40] LABS: Glucose Point of Care 100 mg/dl (65-105)
[2023-09-18 20:33] LABS: Glucose Point of Care 136 mg/dl (65-105)
[2023-09-18] MEDS: ceFAZolin 1 GM/NS 50 ML 1 GM/50 ML BAG IVPB (22:46)
[2023-09-19] VITALS (17 sets, daily range): BP systolic 113–190; BP diastolic 49–94; PULSE 60–79; RESP 14–20; TEMP 35.6–36.6; O2SAT 92–98
[2023-09-19] MEDS: hydrALAZINE HCL 20 MG/ML VIAL 10 MG IV PUSH (03:59)
[2023-09-19 04:22] LABS: Basophils Percent Auto 0.6 % (0.2-1.2); Eosinophils Absolute Auto 0.1 K/mm3 (0-0.3); Hematocrit 36.4 % (42.0-52.0); Hemoglobin 11.9 g/dL (14.0-18.0); Immature Granulocyte Absolute 0.02 K/mm3 (0.00-0.031); Immature Granulocyte Percent A 0.3 % (0-0.5); Lymphocytes Absolute Auto 0.51 K/mm3 (0.9-3.2); Lymphocytes Percent Auto 7.9 % (18.3-44.2); Mean Corpuscular HGB Conc 32.7 g/dl (32-36); Mean Corpuscular Hemoglobin 29.3 pg (26-34); Mean Corpuscular Volume 89.7 fl (80-100); Mean Platelet Volume 9.8 fl (7.4-10.4); Monocytes Absolute Auto 0.6 K/mm3 (0.1-0.6); Monocytes Percent Auto 8.7 % (2.6-8.5); Neutrophils Absolute Auto 5.2 K/mm3 (1.3-6.7); Neutrophils Percent Auto 80.5 % (45.5-73.1); Platelet Count Result 268 k/mm3 (150-375); Red Blood Count 4.06 M/mm3 (4.6-6.20); White Blood Count 6.5 K/mm3 (4.5-10.0)
[2023-09-19 04:36] LABS: Alanine Aminotransferase 18 U/L (6-50); Albumin Level 3.8 g/dL (3.5-5.1); Alkaline Phosphatase 85 U/L (38-126); Anion Gap 5 mmol/L (4-12); Aspartate Amino Transferase 27 U/L (17-59); Blood Urea Nitrogen 15 mg/dL (9-20); Calcium 8.8 mg/dL (8.4-10.2); Carbon Dioxide 28 mmol/L (22-30); Chloride 106 mmol/L (98-107); Estimated CRCL calculation 58 ml/min; Estimated Glomerular Filt Rate > 60; Glucose 115 mg/dL (65-110); Magnesium 2.1 mg/dL (1.6-2.3); Potassium 3.6 mmol/L (3.4-5.0); Sodium 139 mmol/L (137-145)
[2023-09-19] MEDS: ACETAMINOPHEN 325 MG TABLET 650 MG PO ×2 (05:12→08:43)
[2023-09-19] MEDS: ceFAZolin 1 GM/NS 50 ML 1 GM/50 ML BAG IVPB (05:17)
[2023-09-19] MEDS: TRIMETHOBENZAMIDE HCL 200 MG/2 ML VIAL IM (05:56)
[2023-09-19 08:01] LABS: Glucose Point of Care 131 mg/dl (65-105)
[2023-09-19] MEDS: PANTOPRAZOLE 40 MG TABLET PO (08:43)
[2023-09-19] MEDS: FINASTERIDE 5 MG TABLET PO (08:43)
[2023-09-19] MEDS: LORATADINE 10 MG TABLET PO (08:43)
[2023-09-19] MEDS: lisinopriL 20 MG TABLET PO (08:43)
[2023-09-19] MEDS: ASPIRIN 81 MG ENTERIC TABLET PO (08:43)
[2023-09-19] MEDS: ATORVASTATIN 40 MG TABLET PO (08:43)
[2023-09-19] MEDS: hydrALAZINE HCL 25 MG TABLET 50 MG PO ×2 (08:43→16:32)
[2023-09-19] MEDS: amLODIPine BESYLATE 5 MG TABLET 10 MG PO (08:43)
[2023-09-19] MEDS: MONTELUKAST SODIUM 10 MG TABLET PO (08:43)
--- NOTE | 2023-09-19 10:58 | PM.IMPN ---
Progress Note: A&P Assessment and Plan (1) Second degree atrioventricular block: Code(s): I44.1 - Atrioventricular block, second degree Status: Acute Assessment and Plan: Pacemaker placed 09/17 and functioning well (2) Hypertension: Qualifiers: Hypertension type: unspecified Qualified Code(s): I10 - Essential (primary) hypertension Code(s): I10 - Essential (primary) hypertension Status: Acute Assessment and Plan: 159/67 09/18 after receiving IV hydralazine x 1 overnight Adjust meds 09/18 and monitor (added lucius-hctz 12.5-12.5 daily) (3) Headache: Qualifiers: Headache chronicity pattern: acute headache Headache type: unspecified Intractability: not intractable Qualified Code(s): R51.9 - Headache, unspecified Code(s): R51.9 - Headache, unspecified Status: Acute Assessment and Plan: Possibly related to hypertension or medication or tension Similar to h/a during prior hypertensive crisis No indication of increased intracranial pressure or inflammatory process (4) Pacemaker: Code(s): Z95.0 - Presence of cardiac pacemaker Status: Acute Assessment and Plan: 09/18/2023 (5) T2DM (type 2 diabetes mellitus): Code(s): E11.9 - Type 2 diabetes mellitus without complications Status: Acute Assessment and Plan: Controlled (6) CAD (coronary artery disease): Code(s): I25.10 - Atherosclerotic heart disease of [place] coronary artery without angina pectoris Status: Acute Assessment and Plan: No chest pain or dyspnea (7) Anemia: Code(s): D64.9 - Anemia, unspecified Status: Acute Assessment and Plan: Chronic but has yet to be evaluated 09/19/2023 labs ordered Subjective Date/time seen: 09/19/23 10:58 Interval history: 78-year-old diabetic hypertensive gentleman was hospitalized because headache with negative CT of the brain was found to have second-degree AV block and had pacemaker placed yesterday, dual chamber. Tolerating that well. Headache is much better but still up to a 5/10 intensity at times at which point he gets nausea. He is concerned that his blood pressures been running higher. Recently he did changes diet was eating out more because his son was visiting. He did gain about 11 lb and had edema at that time. No edema today. No chest pain. Mild generalized headache. No vision problems. No focal weakness or numbness or incoordination. No current nausea or vomiting. Had his Watt removed this morning has not urinated since. No GI complaints otherwise. Review of Systems Review of Systems: All systems reviewed & are unremarkable except as noted in HPI and below Exam Narrative: HEENT: EOMI, PERRL, sclerae nonicteric, pharyngeal mucosa pink and intact NECK: No JVD, adenopathy, or thyromegaly CHEST: Clear to auscultation. Normal effort. HEART: NL S1/S2, regular, no murmur ABDOMEN: BS+, soft, nontender, no mass, no bruits EXTREMITIES: No cyanosis, edema, or clubbing NEUROLOGIC: CN intact and symmetric to inspection. MUSCULOSKELETAL: Tone and strength symmetric. Nontender over TMJ and temporal arteries. Left upper extremity in immobilizer. PSYCH: Alert. Oriented to person, place, and time. Objective Data Vital Signs Vital Signs: Vital Signs - 24 hr 09/18/23 11:54 09/18/23 12:00 09/18/23 12:00 Temperature 97.9 F Pulse Rate 40 L 46 L Respiratory Rate 17 Blood Pressure 171/55 H Pulse Oximetry 98 Oxygen Delivery Room Air 09/18/23 16:15 09/18/23 16:30 09/18/23 16:45 Temperature Pulse Rate 65 60 61 Respiratory Rate 15 18 15 Blood Pressure 174/69 H 174/64 H 160/67 H Pulse Oximetry 97 94 96 Oxygen Delivery Room Air Room Air Room Air 09/18/23 17:00 09/18/23 17:33 09/18/23 17:19 Temperature 98 F Pulse Rate 73 62 Respiratory Rate 15 16 Blood Pressure 179/69 H 162/69 H Pulse Oximetry 97 97 Oxygen Delivery Room
[2023-09-19 12:02] LABS: Glucose Point of Care 133 mg/dl (65-105)
--- NOTE | 2023-09-19 13:09 | PM.PNCARD ---
Progress Note: A&P Assessment and Plan (1) Second degree atrioventricular block: Code(s): I44.1 - Atrioventricular block, second degree Status: Acute Plan Symptomatic second-degree heart block Status post dual-chamber pacemaker, procedure tolerated well Coronary artery disease with history of prior PCI Hypertension controlled Patient can be discharged from cardiac standpoint and follow up in the clinic Instructions were given to the patient regarding care for post pacemaker Continue aspirin, lisinopril, statin, amlodipine, Subjective Date/time seen: 09/19/23 13:09 Review of Systems Review of Systems: no acute events overnight All systems reviewed & are unremarkable except as noted in HPI and below Exam Const: General: comfortable and no acute distress Other: Able to lie flat Resp: Auscultation: clear to auscultation bilaterally and lung sounds not diminished Other: No chest wall tenderness Cardio: Rate: regular rate Rhythm: regular rhythm Heart sounds: no gallops, no murmurs and no rubs GI: GI Palp: Yes Soft to palpation and No Tenderness to palpation present (GI) Auscultation: normal bowel sounds Skin: General skin exam: normal color, rashes and/or lesions noted and no erythema Other: Warm Extrem: General: no edema Other: Normal capillary refills Intact distal pulses. Objective Data Vital Signs Vital Signs: Vital Signs - 24 hr 09/18/23 16:15 09/18/23 16:30 09/18/23 16:45 Temperature Pulse Rate 65 60 61 Respiratory Rate 15 18 15 Blood Pressure 174/69 H 174/64 H 160/67 H Pulse Oximetry 97 94 96 Oxygen Delivery Room Air Room Air Room Air 09/18/23 17:00 09/18/23 17:33 09/18/23 17:19 Temperature 36.6 C Pulse Rate 73 62 Respiratory Rate 15 16 Blood Pressure 179/69 H 162/69 H Pulse Oximetry 97 97 Oxygen Delivery Room Air Room Air 09/18/23 18:00 09/18/23 18:27 09/18/23 21:00 Temperature 36.7 C Pulse Rate 66 62 Respiratory Rate 14 Blood Pressure 179/61 H 154/57 H Pulse Oximetry 96 Oxygen Delivery 09/18/23 20:00 09/18/23 20:00 09/18/23 22:00 Temperature Pulse Rate 62 61 Respiratory Rate Blood Pressure Pulse Oximetry Oxygen Delivery Room Air 09/18/23 23:22 09/18/23 23:35 09/19/23 00:00 Temperature 36.8 C Pulse Rate 67 65 Respiratory Rate 16 Blood Pressure 173/66 H Pulse Oximetry 95 Oxygen Delivery Room Air 09/19/23 02:00 09/19/23 04:00 09/19/23 04:00 Temperature 36.3 C L Pulse Rate 60 67 Respiratory Rate 18 Blood Pressure 190/94 H Pulse Oximetry 92 Oxygen Delivery Room Air 09/19/23 05:07 09/19/23 04:00 09/19/23 06:00 Temperature Pulse Rate 68 65 Respiratory Rate Blood Pressure 162/62 H Pulse Oximetry Oxygen Delivery 09/19/23 07:32 09/19/23 08:00 09/19/23 08:00 Temperature 36.2 C L Pulse Rate 66 61 Respiratory Rate 14 Blood Pressure 159/67 H Pulse Oximetry 97 Oxygen Delivery Room Air 09/19/23 10:00 09/19/23 11:40 09/19/23 12:01 Temperature 36.3 C L Pulse Rate 63 65 Respiratory Rate 18 Blood Pressure 113/56 L 136/57 L Pulse Oximetry 98 Oxygen Delivery Intake/Output Intake/Output: Intake & Output 09/16/23 09/17/23 09/18/23 09/19/23 23:59 23:59 23:59 23:59 Intake Total 50 4990 840 680 Output Total 850 9051 1350 Balance 50 8595 -0345 -651 Meds/Results Medications: Active Medications Generic Name Dose Route Start Last Admin Trade Name Freq PRN Reason Stop Dose Admin Acetaminophen 650 mg 09/18/23 10:09 09/19/23 08:43 Acetaminophen 325 Mg Tablet PO 650 mg Q4H PRN Administration Headache Amlodipine Besylate 10 mg 09/18/23 09:00 09/19/23 08:43 Amlodipine Besylate 5 Mg Tablet PO 10 mg DAILY RADHA Administration Aspirin 81 mg 09/17/23 09:00 09/19/23 08:43 Aspirin 81 Mg Enteric Tablet PO 81 mg DAILY RADHA Administration Atorvastatin Calcium 40
[2023-09-19 15:59] LABS: Glucose Point of Care 125 mg/dl (65-105)
[2023-09-19 20:28] LABS: Glucose Point of Care 125 mg/dl (65-105)
[2023-09-19] MEDS: SENNOSIDES 8.6 MG TABLET PO (21:08)
[2023-09-20] VITALS: BP 140/48; PULSE 62; PULSE 68; RESP 16; TEMP 36.1; O2SAT 98
[2023-09-20 04:00] VITALS: BP 151/68; PULSE 63; PULSE 65; RESP 16; TEMP 36.5; O2SAT 95
[2023-09-20 04:20] LABS: Hematocrit 38.2 % (42.0-52.0); Hemoglobin 12.7 g/dL (14.0-18.0); Immature Reticulocyte Fraction 12.1 % (3.0-15.9); Mean Corpuscular HGB Conc 33.2 g/dl (32-36); Mean Corpuscular Hemoglobin 29.9 pg (26-34); Mean Corpuscular Volume 89.9 fl (80-100); Mean Platelet Volume 9.8 fl (7.4-10.4); Platelet Count Result 271 k/mm3 (150-375); Red Blood Count 4.25 M/mm3 (4.6-6.20); Red Cell Distribution Width 13.2 % (11.5-14.5); Reticulocyte Hemoglobin Conten 32.8 pg (28.2-36.6); Reticulocytes Absolute 0.07 10^6/uL (0.02-0.10); White Blood Count 6.8 K/mm3 (4.5-10.0)
[2023-09-20 04:50] LABS: Iron 45 ug/dL (49-181)
[2023-09-20 04:54] LABS: Alanine Aminotransferase 16 U/L (6-50); Alkaline Phosphatase 88 U/L (38-126); Anion Gap 8 mmol/L (4-12); Aspartate Amino Transferase 28 U/L (17-59); Bilirubin,Total 0.9 mg/dL (0.2-1.3); Blood Urea Nitrogen 20 mg/dL (9-20); CRP 0.8 mg/dL (<1.0); Calcium 9.2 mg/dL (8.4-10.2); Carbon Dioxide 27 mmol/L (22-30); Chloride 105 mmol/L (98-107); Estimated CRCL calculation 49 ml/min; Estimated Glomerular Filt Rate 58; Glucose 124 mg/dL (65-110); Potassium 3.5 mmol/L (3.4-5.0); Sodium 140 mmol/L (137-145)
[2023-09-20 04:59] LABS: Percent Iron Saturation 13 % (20-50)
[2023-09-20 05:57] LABS: Folic Acid 10.2 ng/mL (2.76->20)
[2023-09-20 08:00] VITALS: BP 115/55; PULSE 69; RESP 20; TEMP 37.4; O2SAT 97
[2023-09-20 08:33] LABS: Glucose Point of Care 178 mg/dl (65-105)
[2023-09-20] MEDS: CYANOCOBALAMIN 1,000 MCG TABLET 1000 MCG PO (09:31)
[2023-09-20] MEDS: FOLIC ACID 1 MG TABLET PO (09:31)
[2023-09-20] MEDS: ATORVASTATIN 40 MG TABLET PO (09:32)
[2023-09-20] MEDS: FERROUS SULFATE 325 MG TABLET DR PO (09:32)
[2023-09-20] MEDS: PANTOPRAZOLE 40 MG TABLET PO (09:32)
[2023-09-20] MEDS: MONTELUKAST SODIUM 10 MG TABLET PO (09:32)
[2023-09-20] MEDS: ASPIRIN 81 MG ENTERIC TABLET PO (09:32)
[2023-09-20] MEDS: FINASTERIDE 5 MG TABLET PO (09:32)
[2023-09-20] MEDS: LORATADINE 10 MG TABLET PO (09:32)
[2023-09-20] MEDS: lisinopriL 20 MG TABLET PO (09:36)
[2023-09-20] MEDS: hydrALAZINE HCL 25 MG TABLET 50 MG PO (09:37)
[2023-09-20] MEDS: amLODIPine BESYLATE 5 MG TABLET 10 MG PO (09:37)
[2023-09-20 09:40] LABS: IFOB Positive Control Positive; Immunochemical Fecal Occult Bl Positive (N)
--- NOTE | 2023-09-20 09:45 | PM.DS ---
DS: Admitting Diagnosis Discharge Date 09/20/2023 Admitting Diagnosis 2nd degree AV block DS: Discharge Diagnosis Discharge Diagnosis (1) Second degree atrioventricular block: Code(s): I44.1 - Atrioventricular block, second degree Status: Acute Assessment and Plan: Pacemaker placed 09/17 and functioning well (2) Hypertension: Qualifiers: Hypertension type: unspecified Qualified Code(s): I10 - Essential (primary) hypertension Code(s): I10 - Essential (primary) hypertension Status: Acute Assessment and Plan: 159/67 09/18 after receiving IV hydralazine x 1 overnight Improved with higher doses of hydralazine and amlodipine (3) Headache: Qualifiers: Headache chronicity pattern: acute headache Headache type: unspecified Intractability: not intractable Qualified Code(s): R51.9 - Headache, unspecified Code(s): R51.9 - Headache, unspecified Status: Acute Assessment and Plan: Possibly related to hypertension or medication or tension Similar to h/a during prior hypertensive crisis No indication of increased intracranial pressure or inflammatory process Resolved with improved blood pressure (4) Pacemaker: Code(s): Z95.0 - Presence of cardiac pacemaker Status: Acute Assessment and Plan: 09/18/2023 (5) T2DM (type 2 diabetes mellitus): Code(s): E11.9 - Type 2 diabetes mellitus without complications Status: Acute Assessment and Plan: Controlled Continue Ozempic (6) CAD (coronary artery disease): Code(s): I25.10 - Atherosclerotic heart disease of [place] coronary artery without angina pectoris Status: Acute Assessment and Plan: No chest pain or dyspnea (7) Anemia: Code(s): D64.9 - Anemia, unspecified Status: Acute Assessment and Plan: Chronic but has yet to be evaluated 09/19/2023 labs ordered Iron low and B12 277 and replacement ordered Stool for occult blood POSITIVE Already has EGD and Colonoscopy scheduled in about 2 weeks DS: Summary Hospital Course Hospital Course: 78-year-old gentleman was admitted with exertional dyspnea and chest tightness and found to have second-degree AV block with bradycardia. Dual-chamber pacemaker placed 09/18/2023. Function well. Tolerated well. Blood pressure was not well controlled so medications were adjusted with increase in amlodipine and hydralazine. Discharge blood pressures were 1 teens over 60s and he tolerated this well without orthostatic symptoms. He was tolerating his diet. Had mild constipation with hard stool. Heme-positive stool. Low iron and borderline B12 as noted below. He was encouraged to keep his follow-up appointment for EGD and colonoscopy and follow-up with primary care physician and admitting clerk as scheduled. Time Spent with Patient Time attestation: Total time spent providing and/or coordinating discharge services: Exam Narrative: HEENT: EOMI, PERRL, sclerae nonicteric, pharyngeal mucosa pink and intact NECK: No JVD, adenopathy, or thyromegaly CHEST: Clear to auscultation. Normal effort. HEART: NL S1/S2, regular, no murmur ABDOMEN: BS+, soft, nontender, no mass, no bruits EXTREMITIES: No cyanosis, edema, or clubbing NEUROLOGIC: CN intact and symmetric to inspection. MUSCULOSKELETAL: Tone and strength symmetric. Nontender over TMJ and temporal arteries. Left upper extremity in immobilizer. PSYCH: Alert. Oriented to person, place, and time. DS: Data Data Completed and Pending Labs on day of discharge: Labs from last 24 hours 09/20/23 09/20/23 09/20/23 09:25 08:30 03:54 WBC 6.8 RBC 4.25 L Hgb 12.7 L Hct 38.2 L MCV 89.9 MCH 29.9 MCHC 33.2 RDW 13.2 Plt Count 271 MPV 9.8 Absolute Retic 0.07 Percent Retic 1.70 Immature Retic Fraction 12.1 Retic Hgb Content 32.8 Sodium 140 Potassium 3.5 Chloride 105 Carbon Dioxide 2
[2023-09-20] MEDS: SENNOSIDES 8.6 MG TABLET PO (10:37)
== END 2023-09-20 11:13 | disposition home or self-care (01) | DRG 244 ==
LOC: ANHED 19:19 → ANHIMU 20:35
PROVIDERS: Internal Medicine; Specialist; Admitting Provider Internal Medicine; Emergency Provider Student in an Organized Health Care Education/Training Program; PCP Internal Medicine; Visit Provider Internal Medicine
PROC: 0JH606Z Insertion of Pacemaker, Dual Chamber into Chest Subcutaneous Tissue and Fascia, Open Approach (ICD-10-PCS; CPT 33208; principal; 2023-09-18 12:30)
DX: I44.1 Atrioventricular block, second degree (principal); I25.10 Atherosclerotic heart disease of native coronary artery without angina pectoris; I10 Essential (primary) hypertension; D64.9 Anemia, unspecified; E11.9 Type 2 diabetes mellitus without complications; E00.9 Congenital iodine-deficiency syndrome, unspecified; N40.0 Benign prostatic hyperplasia without lower urinary tract symptoms; R51.9 Headache, unspecified; Z95.5 Presence of coronary angioplasty implant and graft; Z79.82 Long term (current) use of aspirin
CPT/HCPCS: 33208; 36415; 70450; 71045; 71046; 80053; 81001; 82274; 82607; 82746; 82948; 83036; 83540; 83550; 83690; 83735; 83880; 84443; 84484; 85025; 85027; 85046; 85610; 85730; 86140; 93005; 96365; 96366; 96372; 96375; 96376; 99285; A9270; C1779; C1785; C8929; J0360; J0690; J1650; J2060; J2250; J2270; J2405; J3010; J3250; J3475; J7040; Q9957